=== PATIENT | male | born 1995 | race Caucasian/White ===

== ENCOUNTER 2019-07-26 13:31 | Emergency (ER) | payer SELFPAY ==
[~2019-07-26] VITALS: Ht 177.8 cm; Wt 77.1 kg
== END 2019-07-26 14:44 | disposition home or self-care (01) ==
LOC: ED 13:31
DX: G44.009 Cluster headache syndrome, unspecified, not intractable (principal)
CPT/HCPCS: 96372; 99283-25; J1100; J1885; J2765